=== PATIENT | male | born 1945 | race Caucasian/White ===

== ENCOUNTER 2021-05-30 12:18 | Outpatient (CLI) | payer MEDICARE, SELFPAY ==
--- NOTE | ~2021-05-30 | US_ITS ---
EXAMINATION: US carotid duplex BI DATE: 05/30/2021 13:14 INDICATION: Carotid stenosis. TECHNIQUE: Grayscale, color Doppler, and pulsed Doppler images of the cervical carotid arteries were obtained. The degree of vessel stenosis is placed in one of the following categories: normal, <50%, 5 0-69%, >=70% but less than near-occlusion, near-occlusion, or total occlusion. Note that percent sten osis relative to normal distal artery lumen diameter is indirectly measured from velocity measurement s as described by Zachery, et al. Radiology 2003; 229:340-346. Notes: Normal: Peak systolic velocity <125 centimeters/sec and no plaque <50%. Peak systolic velocity <125 ( EDV <40; ICA/CCA PSV ratio <2.0; used these factors only a tandem lesions or low cardiac output or co ntralateral disease) 50-69 %: PSV 125-230 (EDV 40-100; ratio 2-4) >= 70% but less than near occlusion: PSV greater than 230 (EDV > 100; ratio> 4.0) Near Occlusion: PSV that is variable; markedly narrowed lumen Occlusion: Absent flow on color/spectral Doppler and no lumen on marin scale. COMPARISON: None. FINDINGS: RIGHT: The right common carotid artery (CCA) peak systolic velocity (PSV) is 79 cm/s. The right internal car otid artery (ICA) PSV is 85 cm/s. The right ICA end-diastolic velocity (EDV) is 39 cm/s. The right IC A/CCA PSV ratio is 1.1. The external carotid artery (ECA) PSV is 161 cm/s. There is antegrade flow in the right vertebral artery. LEFT: The left CCA PSV is 85 cm/s. The left ICA PSV is 126 cm/s. The left ICA EDV is 29 cm/s. The left ICA/ CCA PSV ratio is 1.5. The ECA PSV is 174 cm/s. There is antegrade flow in the left vertebral artery. IMPRESSION: 1. Less than 50% stenosis in the right internal carotid artery by sonographic criteria. 2. 50-69% stenosis in the left internal carotid artery by sonographic criteria. Reviewed, dictated and finalized at location B. IMPRESSION: 1. Less than 50% stenosis in the right internal carotid artery by sonographic c amandaeria. 2. 50-69% stenosis in the left internal carotid artery by sonographic criteria.
== END 2021-05-30 12:19 | disposition home or self-care (01) ==
LOC: CHSIMG 12:20
PROVIDERS: PCP Internal Medicine; Visit Provider Internal Medicine
DX: I65.29 Occlusion and stenosis of unspecified carotid artery (principal); I48.91 Unspecified atrial fibrillation
CPT/HCPCS: 93306; 93880

== ENCOUNTER 2021-07-15 08:35 | Outpatient (CLI) | payer MEDICARE, SELFPAY ==
--- NOTE | 2021-07-15 09:15 | EST_ITS ---
Patient Info Name: Kodak Mckee Age: 76 years : 1945 Gender: Male Ht: 67 in Wt: 284 lbs BSA: 2.54 m2 HR: 51 bpm BP: 106 / 55 mmHg Heart Rhythm: Bradycardia Exam Date: 07/15/2021 9:45 AM Exam Location: [facility] Patient Status: Outpatient Admit Date: 07/15/2021 Staff Ordering Physician: Luis Manuel, Emy Joseph APRN Attending Provider: Luis Manuel, Emy Joseph APRN Exercise Technologist: Lelo Ortiz, AUTOMOTIVE HARDWARE ENGINEER Exercise Physician: Patience Sotelo CEP Exam Type: CA stress shahbaz w NM Study Info Indications NewAFIB - A nuclear stress test was performed. History/Risk Factors Hypertension: Yes Cardiomyopathy/LV Systolic Dysfunction: Yes History/Risk Factors New A FIB. LV Dysfunction. HTN. Summary 1. 1. Negative lexiscan stress test for ischemic ST changes by ECG criteria. 2. 2. Stable hemodynamics throughout the test. 3. 3. Nuclear scan to follow and will be reported separately. Please correlate with it. Protocol: LEXISCAN Stress ECG Details Stage: REST Duration (min): 3 min : 26 sec HR (bpm): 52 SBP (mmHg): 106 DBP (mmHg): 55 Stage: REST Duration (min): 3 min : 58 sec HR (bpm): 51 SBP (mmHg): 106 DBP (mmHg): 55 Stage: REST Duration (min): 7 min : 34 sec HR (bpm): 51 SBP (mmHg): 106 DBP (mmHg): 55 Stage: STAGE 1 Duration (min): 0 min : 7 sec HR (bpm): 51 SBP (mmHg): 106 DBP (mmHg): 55 Stage: RECOVERY Duration (min): 0 min : 53 sec HR (bpm): 54 SBP (mmHg): 106 DBP (mmHg): 55 Stage: RECOVERY Duration (min): 1 min : 53 sec HR (bpm): 59 SBP (mmHg): 138 DBP (mmHg): 58 Stage: RECOVERY Duration (min): 2 min : 53 sec HR (bpm): 56 SBP (mmHg): 127 DBP (mmHg): 56 Stage: RECOVERY Duration (min): 3 min : 53 sec HR (bpm): 55 SBP (mmHg): 127 DBP (mmHg): 56 Stage: RECOVERY Duration (min): 4 min : 53 sec HR (bpm): 55 SBP (mmHg): 141 DBP (mmHg): 39 Stage: RECOVERY Duration (min): 5 min : 53 sec HR (bpm): 55 SBP (mmHg): 168 DBP (mmHg): 63 Stage: RECOVERY Duration (min): 6 min : 4 sec HR (bpm): 55 SBP (mmHg): 168 DBP (mmHg): 63 Rest HR: 51 bpm Peak HR: 62 bpm Rest Sys BP: 106 mmHg Peak Sys BP: 168 mmHg Max Pred HR: 145 bpm % Max Pred HR: 43 % Target HR: 123 bpm Max RPP: 10,416 bpm*mmHg Termination Reason: Completed Protocol Cardiac Symptoms: None Total Time: 0 min : 7 sec Rest Morgan BP: 55 mmHg Peak Morgan BP: 63 mmHg Total Dose: 0.4 mg Resting ECG Sinus bradycardia, borderline T wave abnormality in high lateral leads. Stress ECG No ST changes. Arrhythmias No arrhythmias were observed during the examination. Report Signatures
--- NOTE | 2021-07-15 12:52 | WPDCARIOSTRE ---
Nuclear Stress Test INDICATIONS Indications: Abnormal EKG PROCEDURE Procedure Performed: Myocardial Perf Spect-Multi Procedure: Patient underwent a lexiscan stress and was immediately injected with 32.1 mCi of cardiolyte. Multiple tomographic images were obtained. These are of good quality. There is evidence of mild size, mild severity inferior perfusion defect during stress imaging. A separate resting images were obtained after patient was injected with 9.2 mCi of cardiolyte. Multiple tomographic images were obtained. These are of good quality. There is evidence of mild size, mild severity inferior perfusion defect during rest imaging. CONCLUSION Conclusion: 1. Myocardial perfusion imaging demonstrating fixed mild size inferior perfusion defect suggestive of diaphragmatic attenuation artifact. 2. No reversible ischemia. 3. Left ventriculogram demonstrates borderline low measured ejection fraction of 49% with no wall motion abnormalities. 4. TID score is normal at 1.14.
== END 2021-07-15 08:36 | disposition home or self-care (01) ==
LOC: CHSIMG 08:37
PROVIDERS: PCP Internal Medicine; Visit Provider Internal Medicine Cardiovascular Disease
DX: I48.91 Unspecified atrial fibrillation (principal); I51.9 Heart disease, unspecified; R06.02 Shortness of breath; I65.23 Occlusion and stenosis of bilateral carotid arteries; R26.2 Difficulty in walking, not elsewhere classified; I10 Essential (primary) hypertension
CPT/HCPCS: 78452; 93017; A9502; J2785